=== PATIENT | male | born 1955 | race Caucasian/White ===

== ENCOUNTER 2022-03-18 13:56 | Outpatient (CLI) | payer MEDICAID | END 2022-03-18 13:57 | disposition critical access hospital (66) | LOC: EMS 13:56 | DX: R53.81 Other malaise (principal); R25.1 Tremor, unspecified | CPT/HCPCS: A0425; A0429; A0999 ==

== ENCOUNTER 2022-03-18 14:17 | Emergency (ER) | payer MEDICAID ==
--- NOTE | 2022-03-18 14:36 | ED Physician Documentation ---
History of Present Illness - Stated complaint Stated Complaint: DETOX - History obtained from History obtained from: Patient, EMS - Additonal information Additional information: The patient is brought to the emergency department by EMS from eye to ER for chief complaint of generalized weakness and shaking. The patient checked into [facility] yesterday and had breathalyzers throughout the night. His last breathalyzer was at 4:00 this morning and was 0.6. His previous one been at 130 and was 0.89. According to [facility] records, the last dose of Ativan the patient had was at 4:00 this morning. He states that it was around 9:00 that he began to feel weak and shaky. He states he felt that way throughout the morning and finally told the staff he did not think he could walk and so they sent him here. The patient states he was nauseated earlier but is not now. He denies any other complaints at this time. No pain. No hallucinations. No lightheadedness. Review of Systems Ten Systems: 10 systems reviewed and negative Constitutional: reports: Reviewed and negative Eyes: reports: Reviewed and negative Ears: reports: Reviewed and negative Nose: reports: Reviewed and negative Throat: reports: Reviewed and negative Cardiac: reports: Reviewed and negative Respiratory: reports: Reviewed and negative GI: reports: Reviewed and negative : reports: Reviewed and negative Skin: reports: Reviewed and negative Musculoskeletal: reports: Reviewed and negative Neurologic: reports: Reviewed and negative Psychiatric: reports: Reviewed and negative Endocrine: reports: Reviewed and negative Immunocompromised: reports: Reviewed and negative PD PAST MEDICAL HISTORY - Allergies Allergies/Adverse Reactions: Allergies Allergy/AdvReac Type Severity Reaction Status Date / Time No Known Drug Allergies Allergy Verified 03/18/22 14:45 PD ED PE NORMAL - Vitals Vital signs reviewed: Yes - General General: Alert and oriented X 3, No acute distress, Well developed/nourished - HEENT HEENT: Atraumatic, PERRL, EOMI, Moist mucous membranes - Neck Neck: Supple, no meningeal sign - Cardiac Cardiac: RRR, No murmur, Strong equal pulses - Respiratory Respiratory: No respiratory distress, Clear bilaterally - Abdomen Abdomen: Soft, Non tender, Non distended - Derm Derm: Normal color, Warm and dry, No rash - Extremities Extremities: No deformity, No edema - Neuro Neuro: Alert and oriented X 3, Other (Coarse tremors, including vocal. ) - Psych Psych: Normal mood, Normal affect Results - Vitals Vitals: Vital Signs - 24 hr 03/18/22 14:28 Temperature 100.8 C H Heart Rate 63 Respiratory 18 Rate Blood Pressure 122/71 O2 Saturation 96 Oxygen O2 Source Room air - Labs Labs: Laboratory Tests 03/18/22 03/18/22 03/18/22 14:31 14:51 14:51 WBC 2.9 L RBC 3.53 L Hgb 12.6 L Hct 37.2 L MCV 105.4 H MCH 35.7 H MCHC 33.9 RDW 15.3 H Plt Count 19 L* MPV 13.0 H Neut # (Auto) Not Reportable Lymph # (Auto) Not Reportable [place] # (Auto) Not Reportable Eos # (Auto) Not Reportable Baso # (Auto) Not Reportable Absolute Nucleated RBC Not Reportable Total Counted 100 Band Neuts % (Manual) 0 Reactive Lymphs % (Man) 2 Abnorm Lymph % (Manual) 0 Nucleated RBC % Not Reportable Neutrophils # (Manual) 1.9 Lymphocytes # (Manual) 0.5 L Monocytes # (Manual) 0.3 Eosinophils # (Manual) 0.1 Basophils # (Manual) 0.2 H Differential Comment MANUAL DIFFERENTIAL WBC Morphology NORMAL APPEARANCE Platelet Estimate DECREASED (<130,000) Platelet Morphology NORMAL APPEARANCE RBC Morph Micro Appear 1+ MACROCYTOSIS Sodium 137 Potassium 3.9 Chloride 102 Carbon Dioxide 25 Anion Gap 10.0 BUN 13 Creatinine 0.7 Estimated GFR (MDRD) 114 Glucose 101 H POC Whole Bld Glucose 96 Calcium 8.8 Total Bilirubin 7.5 H AST 155 H ALT 49 Alkaline Phosphatase 83 Total Protein 6.8 Albumin 2.6 L Globulin 4.2 Albumin/Globulin Ratio 0.6 L Lipase 72 H PD MEDICAL DECISION MAKING - ED course Complexity details: reviewed results, re-evaluated patient, considered differential, d/w patient ED course: The patient was grossly tremulous, but his vital signs were actually normal. The patient was alert and oriented and did not clinically appear to be in delirium tremens. The patient was given a liter 0.9 normal saline and a dose of phenobarbital 260 mg, after which she did report feeling somewhat better. He was found to be feeling a little better but still somewhat unsteady when gotten up. He was then given a banana bag which is still infusing at this time. He was found to have pancytopenia but especially, a low platelet count at 19. We did not have any prior values in [facility] and no prior visits, so I spoke with the patient regarding his history. He states he has a history of low platelets that he has been told it is because of his alcohol abuse. At this point in time, I to is willing to take the patient back when he is doing better. He is currently receiving his IV Banana bag and is pending reevaluation. Patient signed out to Dr. Deluca, pending clinical improvement. Departure - Departure Clinical Impression: Alcohol abuse Alcohol withdrawal Qualifiers: Complication of substance-induced condition: with unspecified complication Qualified Code(s): F10.939 - Alcohol use, unspecified with withdrawal, unspecified Condition: Stable
[2022-03-18] MEDS ORDERED: KETOROLAC 30 MG/ML VIAL IVP STA (14:40)
[2022-03-18] MEDS ORDERED: SODIUM CHLORIDE 0.9% 1,000 ML IV STA (14:40)
[2022-03-18] MEDS ORDERED: PHENobarbital 65 MG/ML VIAL IV STA (14:41)
[2022-03-18 15:02] LABS: BASOPHILS % (AUTO) 1.7 %; EOSINOPHILS % (AUTO) 1.4 %; HCT - HEMATOCRIT 37.2 % (42.0-52.0); HGB - HEMOGLOBIN 12.6 g/dL (14.0-18.0); LYMPHOCYTES % (AUTO) 18.5 %; MEAN CORPUSCULAR HEMOGLOBIN 35.7 pg (27.0-31.0); MEAN CORPUSCULAR HGB CONC 33.9 g/dL (32.0-36.0); MEAN CORPUSCULAR VOLUME 105.4 fL (80.0-94.0); MONOCYTES % (AUTO) 13.4 %; NEUTROPHILS % (AUTO) 64.3 %; RED BLOOD COUNT 3.53 10^6/uL (4.70-6.10); RED CELL DISTRIBUTION WIDTH 15.3 % (12.0-15.0); WHITE BLOOD COUNT 2.9 x10^3/uL (4.8-10.8)
[2022-03-18 15:10] LABS: ALBUMIN 2.6 g/dL (3.2-5.5); ALBUMIN/GLOBULIN RATIO 0.6 (1.0-2.2); BILIRUBIN,TOTAL 7.5 mg/dL (0.2-1.0); CALCIUM 8.8 mg/dL (8.5-10.3); CREATININE 0.7 mg/dL (0.6-1.2); POTASSIUM 3.9 mmol/L (3.5-5.0); TOTAL PROTEIN 6.8 g/dL (6.7-8.2)
[2022-03-18 15:37] LABS: PLT - PLATELET COUNT 19 10^3/uL (130-450)
[2022-03-18 15:38] LABS: ABNORMAL LYMPHS % (MANUAL) 0 %; BAND NEUTROPHILS % (MANUAL) 0 %
[2022-03-18 15:53] LABS: BASOPHILS # (MANUAL) 0.2 10^3/uL (0-0.1); BASOPHILS % (MANUAL) 7 %; EOSINOPHILS # (MANUAL) 0.1 10^3/uL (0-0.7); LYMPHOCYTES # (MANUAL) 0.5 10^3/uL (1.5-3.5); LYMPHOCYTES % (MANUAL) 15 %; MONOCYTES # (MANUAL) 0.3 10^3/uL (0.0-1.0); NEUTROPHILS # (MANUAL) 1.9 10^3/uL (1.5-6.6); REACTIVE LYMPHS % (MANUAL) 2 %
[2022-03-18 15:54] LABS: PLATELET ESTIMATE, MANUAL DECREASED (<130,000) (NORMAL); PLATELET MORPHOLOGY NORMAL APPEARANCE (NORMAL); RBC MORPHOLOGY (MULTIPLE) 1+ MACROCYTOSIS (NORMAL); WBC MORPHOLOGY (MULTIPLE) NORMAL APPEARANCE (NORMAL)
[2022-03-18 15:55] LABS: DIFFERENTIAL COMMENT MANUAL DIFFERENTIAL
[2022-03-18] MEDS ORDERED: THIAMINE INJ 100 MG, MAGNESIUM SULFATE 2 GM, MULTIVITAMIN 10 ML, FOLIC ACID INJ 1 MG in... IV ONE ×5 (16:26)
[2022-03-18 20:21] VITALS: BP 105/63
== END 2022-03-18 20:20 | disposition home or self-care (01) ==
LOC: ED 14:17
DX: F10.139 Alcohol abuse with withdrawal, unspecified (principal); D61.818 Other pancytopenia
CPT/HCPCS: 36415; 80053; 83690; 85025; 96361; 96365; 96375; 99284

== ENCOUNTER 2022-03-18 21:09 | Outpatient (CLI) | payer MEDICAID | END 2022-03-18 21:10 | disposition critical access hospital (66) | LOC: EMS 21:09 | DX: R40.4 Transient alteration of awareness (principal) | CPT/HCPCS: A0425; A0429; A0999 ==

== ENCOUNTER 2022-03-18 21:28 | Emergency (ER) | payer MEDICAID ==
[2022-03-18] MEDS ORDERED: ETOMIDATE 40 MG/20 ML VIAL IVP ONE (21:56)
[2022-03-18] MEDS ORDERED: SUCCINYLCHOLINE 200 MG/10 ML VIAL ONE (21:56)
[2022-03-18] MEDS ORDERED: PROPOFOL 200 MG/20 ML VIAL IVP ONE (22:02)
[2022-03-18] MEDS ORDERED: PROPOFOL 1000 MG/100 ML 1,000 MG/100 ML BOTTLE IV ONE (22:03)
[2022-03-18] MEDS ORDERED: PROPOFOL 1000 MG/100 ML 1,000 MG/100 ML BOTTLE IV STA (22:04)
[2022-03-18] MEDS ORDERED: SUCCINYLCHOLINE 200 MG/10 ML VIAL IVP STA (22:04)
[2022-03-18] MEDS ORDERED: levETIRAcetam 500 MG/5 ML VIAL IVP STA (22:04)
[2022-03-18] MEDS ORDERED: ETOMIDATE 40 MG/20 ML VIAL IVP STA (22:04)
[2022-03-18] MEDS ORDERED: SODIUM CHLORIDE 0.9% 1,000 ML IV STA (22:08)
--- NOTE | 2022-03-18 22:08 | CT Report ---
PROCEDURE: HEAD WO INDICATIONS: Altered mental status TECHNIQUE: Noncontrast 4.5 mm thick angled axial sections acquired from the foramen magnum to the vertex. For r adiation dose reduction, the following was used: automated exposure control, adjustment of mA and/or kV according to patient size. COMPARISON: None. FINDINGS: Image quality: Excellent. CSF spaces: Basal cisterns are patent. Hyperdense blood products at the third and fourth ventricles. Suspect intraparenchymal blood products at the posterior cheri/midbrain, (03/21). Ventricles are not dilated. No blood product appreciated in the lateral ventricles. Brain: No midline shift. No mass identified. No area of hypodensity in a vascular distribution to suggest acute infarction. There is periventricular hypodensity consistent with chronic microvascular ischemic disease. Age-related parenchymal loss. Skull and face: Calvarium and visualized facial bones are intact, without suspicious lesions. Sinuses: Visualized sinuses and mastoids are clear. IMPRESSION: 1. Small focus of intraparenchymal hemorrhage at the posterior cheri/midbrain. 2. Hyperdense blood products collecting in the third and fourth ventricles. 3. Chronic microvascular ischemic disease. Results were communicated to Dr. Deluca at 03/18/2022 10:05 PM PDT. Reviewed by: Lawrence Villalta MD on 03/18/2022 10:07 PM PDT Approved by: Lawrence Villalta MD on 03/18/2022 10:07 PM PDT Station ID: [id number]
--- NOTE | 2022-03-18 22:12 | ED Physician Documentation ---
PD HPI ALTERED MENTAL STATUS - Stated complaint Stated Complaint: AMS - Chief complaint Chief Complaint: Neuro - History obtained from History obtained from: EMS - Additional information Additional information: Patient is a 66-year-old male who was just discharged from our facility after being evaluated for alcohol withdrawal. He was sent back in a cab to alcohol detox facility and was unable to get out of the cab and so EMS was called.Patient is somnolent and not able to provide any information. Review of Systems Unable to obtain: Unresponsive PD PAST MEDICAL HISTORY - Allergies Allergies/Adverse Reactions: Allergies Allergy/AdvReac Type Severity Reaction Status Date / Time No Known Drug Allergies Allergy Verified 03/18/22 14:45 PD ED PE NORMAL - General General: Other ([place] incoherently to painful stimuli) - HEENT HEENT: Atraumatic, PERRL - Cardiac Cardiac: RRR, Strong equal pulses - Respiratory Respiratory: No respiratory distress, Clear bilaterally - Abdomen Abdomen: Normal bowel sounds, Soft, Non tender, Non distended - Derm Derm: Warm and dry - Extremities Extremities: No edema - Neuro Neuro: No: Alert and oriented X 3, No motor deficit (Left arm weakness), Normal speech Eye Opening: To Pain Motor: Withdraws to Pain Verbal: None GCS Score: 7 Results - Vitals Vitals: Vital Signs - 24 hr 03/18/22 03/18/22 03/18/22 21:39 22:24 23:01 Temperature 36.6 C 36.4 C L Heart Rate 51 L 40 L 50 L Respiratory 18 19 Rate Blood Pressure 106/50 L 101/59 L O2 Saturation 94 93 Oxygen O2 Source Mechanical ventilator - EKG (time done) 2308 Rate: Rate (enter#) (104) Rhythm: Sinus tachycardia [place]: Normal - Labs Labs: Laboratory Tests 03/18/22 03/18/22 03/18/22 22:20 22:20 22:20 WBC 3.2 L RBC 3.50 L Hgb 12.3 L Hct 36.3 L MCV 103.7 H MCH 35.1 H MCHC 33.9 RDW 15.2 H Plt Count 17 L* MPV 11.8 H Neut # (Auto) 2.1 Lymph # (Auto) 0.6 L [place] # (Auto) 0.4 Eos # (Auto) 0.0 Baso # (Auto) 0.0 Absolute Nucleated RBC 0.00 Nucleated RBC % 0.0 Manual Slide Review Indicated Platelet Estimate DECREASED (<130,000) Platelet Morphology NORMAL APPEARANCE PT 20.4 H INR 1.9 H Sodium 134 L Potassium 4.1 Chloride 100 L Carbon Dioxide 25 Anion Gap 9.0 BUN 14 Creatinine 0.6 Estimated GFR (MDRD) 136 Glucose 107 H Calcium 8.2 L Total Bilirubin 8.3 H AST 145 H ALT 46 Alkaline Phosphatase 74 Total Protein 6.9 Albumin 2.5 L Globulin 4.4 H Albumin/Globulin Ratio 0.6 L Nasal Adenovirus (PCR) Nasal B. parapertussis DNA (PCR) Nasal Coronavir 229E PCR Nasal Coronavir HKU1 PCR Nasal Coronavir NL63 PCR Nasal Coronavir OC43 PCR Nasal Enterovir/Rhinovir PCR Nasal Influenza B PCR Nasal Influenza A PCR Nasal Parainfluen 1 PCR Nasal Parainfluen 2 PCR Nasal Parainfluen 3 PCR Nasal Parainfluen 4 PCR Nasal RSV (PCR) Nasal B.pertussis DNA PCR Nasal C.pneumoniae (PCR) [place] Human Metapneumo PCR Nasal M.pneumoniae (PCR) Nasal SARS-CoV-2 (PCR) Salicylates < 6.0 Urine Opiates Screen Ur Oxycodone Screen Urine Methadone Screen Ur Propoxyphene Screen Acetaminophen < 10 L Ur Barbiturates Screen Ur Tricyclics Screen Ur Phencyclidine Scrn Ur Amphetamine Screen U Methamphetamines Scrn U Benzodiazepines Scrn Urine Cocaine Screen U Cannabinoids Screen Ethyl Alcohol < 5.0 03/18/22 03/18/22 22:22 22:22 WBC RBC Hgb Hct MCV MCH MCHC RDW Plt Count MPV Neut # (Auto) Lymph # (Auto) Wright # (Auto) Eos # (Auto) Baso # (Auto) Absolute Nucleated RBC Nucleated RBC % Manual Slide Review Platelet Estimate Platelet Morphology PT INR Sodium Potassium Chloride Carbon Dioxide Anion Gap BUN Creatinine Estimated GFR (MDRD) Glucose Calcium Total Bilirubin AST ALT Alkaline Phosphatase Total Protein Albumin Globulin Albumin/Globulin Ratio Nasal Adenovirus (PCR) NOT DETECTED Nasal B. parapertussis DNA (PCR) NOT DETECTED Nasal Coronavir 229E PCR NOT DETECTED Nasal Coronavir HKU1 PCR NOT DETECTED Nasal Coronavir NL63 PCR NOT DETECTED Nasal Coronavir OC43 PCR NOT DETECTED Nasal Enterovir/Rhinovir PCR NOT DETECTED Nasal Influenza B PCR NOT DETECTED Nasal Influenza A PCR NOT DETECTED Nasal Parainfluen 1 PCR NOT DETECTED Nasal Parainfluen 2 PCR NOT DETECTED Nasal Parainfluen 3 PCR NOT DETECTED Nasal Parainfluen 4 PCR NOT DETECTED Nasal RSV (PCR) NOT DETECTED Nasal B.pertussis DNA PCR NOT DETECTED Nasal C.pneumoniae (PCR) NOT DETECTED [place] Human Metapneumo PCR NOT DETECTED Nasal M.pneumoniae (PCR) NOT DETECTED Nasal SARS-CoV-2 (PCR) NOT DETECTED Salicylates Urine Opiates Screen NEGATIVE Ur Oxycodone Screen NEGATIVE Urine Methadone Screen NEGATIVE Ur Propoxyphene Screen NEGATIVE Acetaminophen Ur Barbiturates Screen POSITIVE H Ur Tricyclics Screen NEGATIVE Ur Phencyclidine Scrn NEGATIVE Ur Amphetamine Screen NEGATIVE U Methamphetamines Scrn NEGATIVE U Benzodiazepines Scrn POSITIVE H Urine Cocaine Screen NEGATIVE U Cannabinoids Screen NEGATIVE Ethyl Alcohol Procedures - Intubation Provider: Emergency physician Medications: Etomidate, Succinylcholine Blade: Glidescope Tube: Size-enter number (8), Cuffed Route: Oral Confirmation: Direct visualization, Bilateral breath sounds, No abdominal breath sound, End tidal CO2, Pulse ox Complications: No compications PD MEDICAL DECISION MAKING - ED course Complexity details: reviewed results, re-evaluated patient ED course: Patient presented with altered mental status, just discharged from our facility and was able to ambulate at that time. He appears to have left arm weakness and was sent for a stat head CT. He is noted to be thrombocytopenic. Head CT shows intraparenchymal bleed. Patient was intubated for airway protection. Prior to intubation appeared to have activity involving right arm concerning for seizure activity.Patient was given Keppra and on propofol. No further seizure activity seen.Patient has pancytopenia with severe thrombocytopenia. There are no platelets available here.Discussed with Dr. Eleanor Grijalva (Neurology) Who accepts the patient to the ER. [facility] transported patient. - Critical Care Time(min): 31 Time Includes: Direct patient care, Reassess patient, Document care, Coordinate care Procedures excluded from critical care time: Intubation Departure - Departure Disposition: 02 Transfer Acute Care Hosp Clinical Impression: Intracranial hemorrhage, Thrombocytopenia, Respiratory failure, Pancytopenia Condition: Critical Discharge Date/Time: 03/18/22 23:40
[2022-03-18] MEDS ORDERED: levETIRAcetam INJ 1,000 MG in SODIUM CHLORIDE 0.9% 100ML 100 ML IV STA (22:16)
[2022-03-18 22:30] LABS: BASOPHILS % (AUTO) 1.3 %; EOSINOPHILS % (AUTO) 0.9 %; HCT - HEMATOCRIT 36.3 % (42.0-52.0); HGB - HEMOGLOBIN 12.3 g/dL (14.0-18.0); LYMPHOCYTES # (AUTO) 0.6 10^3/uL (1.5-3.5); LYMPHOCYTES % (AUTO) 18.8 %; MEAN CORPUSCULAR HEMOGLOBIN 35.1 pg (27.0-31.0); MEAN CORPUSCULAR HGB CONC 33.9 g/dL (32.0-36.0); MEAN CORPUSCULAR VOLUME 103.7 fL (80.0-94.0); MEAN PLATELET VOLUME 11.8 fL (7.4-11.4); MONOCYTES # (AUTO) 0.4 10^3/uL (0.0-1.0); MONOCYTES % (AUTO) 12.5 %; NEUTROPHILS # (AUTO) 2.1 10^3/uL (1.5-6.6); NEUTROPHILS % (AUTO) 65.9 %; RED CELL DISTRIBUTION WIDTH 15.2 % (12.0-15.0); WHITE BLOOD COUNT 3.2 x10^3/uL (4.8-10.8)
[2022-03-18 22:31] LABS: MUDS CUTOFF CONCENTRATIONS CUTOFF CONC BELOW:
[2022-03-18 22:32] LABS: PLT - PLATELET COUNT 17 10^3/uL (130-450); SLIDE REVIEW? Indicated
[2022-03-18 22:36] LABS: INR 1.9 (0.8-1.2); PT - PROTHROMBIN TIME 20.4 secs (9.9-12.6)
[2022-03-18 22:44] LABS: ACETAMINOPHEN < 10 ug/mL (10-30); ALBUMIN 2.5 g/dL (3.2-5.5); ALBUMIN/GLOBULIN RATIO 0.6 (1.0-2.2); ALKALINE PHOSPHATASE 74 IU/L (42-121); ALT ALANINE AMINOTRANSFERASE 46 IU/L (10-60); AST ASPARTATE AMINOTRANSFERASE 145 IU/L (10-42); BILIRUBIN,TOTAL 8.3 mg/dL (0.2-1.0); BUN - BLOOD UREA NITROGEN 14 mg/dL (6-20); CALCIUM 8.2 mg/dL (8.5-10.3); CARBON DIOXIDE - CO2 25 mmol/L (21-32); CHLORIDE 100 mmol/L (101-111); CREATININE 0.6 mg/dL (0.6-1.2); ETOH - ETHANOL < 5.0 mg/dL; GFR - MDRD 136 (>89); GLUCOSE 107 mg/dL (70-100); POTASSIUM 4.1 mmol/L (3.5-5.0); SALICYLATE < 6.0 mg/dL; SODIUM 134 mmol/L (135-145); TOTAL PROTEIN 6.9 g/dL (6.7-8.2)
[2022-03-18 22:46] LABS: AMPHETAMINE SCREEN,URINE NEGATIVE (NEGATIVE); BENZODIAZEPINES SCREEN, URINE POSITIVE (NEGATIVE); COCAINE SCREEN URINE NEGATIVE (NEGATIVE); METHAMPHETAMINES SCREEN, URINE NEGATIVE (NEGATIVE); OPIATE SCREEN, URINE NEGATIVE (NEGATIVE); THC CANNABINOID SCREEN, URINE NEGATIVE (NEGATIVE); TRICYCLIC ANTIDEPRESSANT,URINE NEGATIVE (NEGATIVE)
[2022-03-18 22:47] LABS: BARBITURATE SCREEN,UR POSITIVE (NEGATIVE); METHADONE SCREEN, URINE NEGATIVE (NEGATIVE); OXYCODONE SCREEN, URINE NEGATIVE (NEGATIVE); PROPOXYPHENE SCREEN, URINE NEGATIVE (NEGATIVE)
[2022-03-18 22:57] LABS: PLATELET ESTIMATE, MANUAL DECREASED (<130,000) (NORMAL); PLATELET MORPHOLOGY NORMAL APPEARANCE (NORMAL)
[2022-03-18 23:07] VITALS: BP 101/59
[2022-03-18 23:28] LABS: B. PARAPERTUSSIS- RESP PCR PAN NOT DETECTED; B. PERTUSSIS- RESP PCR PANEL NOT DETECTED; C. PNEUMONIAE- RESP PCR PANEL NOT DETECTED; CORONAVIRUS 229E-RESP PCR NOT DETECTED; CORONAVIRUS HKU1-RESP PCR NOT DETECTED; CORONAVIRUS NL63-RESP PCR NOT DETECTED; CORONAVIRUS OC43-RESP PCR NOT DETECTED; HUMAN METAPNEUMOVIRUS NOT DETECTED; INFLUENZA A- RESP PCR PANEL NOT DETECTED; INFLUENZA B - RESP PCR PANEL NOT DETECTED; M. PNEUMONIAE- RESP PCR PANEL NOT DETECTED; PARAINFLUENZA VIRUS 1 NOT DETECTED; PARAINFLUENZA VIRUS 2 NOT DETECTED; PARAINFLUENZA VIRUS 3 NOT DETECTED; PARAINFLUENZA VIRUS 4 NOT DETECTED; RHINOVIRUS/ENTEROVIRUS NOT DETECTED; RSV- RESP PCR PANEL NOT DETECTED; SARS-CoV-2 -RESP PCR PANEL NOT DETECTED
== END 2022-03-18 23:40 | disposition short-term general hospital (02) ==
LOC: EDUNIT# → ED 21:28
DX: D69.6 Thrombocytopenia, unspecified (principal); I62.9 Nontraumatic intracranial hemorrhage, unspecified; D61.818 Other pancytopenia; J96.90 Respiratory failure, unspecified, unspecified whether with hypoxia or hypercapnia; G81.94 Hemiplegia, unspecified affecting left nondominant side; F10.139 Alcohol abuse with withdrawal, unspecified; Z20.822 Contact with and (suspected) exposure to COVID-19
CPT/HCPCS: 31500; 36415; 70450; 80053; 80306; 80307; 80320; 80329; 83690; 85025; 85610; 87633; 96361; 96365; 96374; 96375; 99284; 99291; J0330; J3411